=== PATIENT | female | born 1975 | race American Indian/Alaskan Native ===

== ENCOUNTER 2017-02-04 15:28 | Emergency (ER) | payer SELFPAY ==
[2017-02-04 17:07] VITALS: BP 140/82
[2017-02-04] MEDS ORDERED: FUL-GLO OP ONE ×2 (20:28→20:52)
--- NOTE | 2017-02-04 20:51 | Emergency Department Report ---
Eye Injury/Foreign Body - HPI Duration: 1 Day Eye Location: Left Severity: Mild Eye Symptoms: Eye Pain: Yes, Blurred Vision: Yes, Eye Redness: Yes, Grinding/ Hammering Metal: No, Contact Lens Use: No, Recalls Injury: Yes (patient states she thinks she scratched inside of eye with nail), Photophobia: Yes Other History: 41 year old female presents to ED with left sided eye pain, redness, blurriness x1 day. patient states she think she scratched eye with nail 1 day ago. patient is stable, neurologically intact and in no acute distress. patient states she wears glasses but denies wearing contact lenses. patient states LMP 01/28/17 ED Review of Systems ROS: Stated complaint: LFT EYE SWELLING Other details as noted in HPI Constitutional: denies: chills, fever Eyes: eye pain, eye discharge (watery), vision change (blurry) ENT: denies: ear pain, throat pain Respiratory: denies: cough, shortness of breath, wheezing Cardiovascular: denies: chest pain, palpitations Endocrine: no symptoms reported Gastrointestinal: denies: abdominal pain, nausea, diarrhea Genitourinary: denies: urgency, dysuria, discharge Musculoskeletal: denies: back pain, joint swelling, arthralgia Skin: denies: rash, lesions Neurological: denies: headache, weakness, numbness, paresthesias, confusion Psychiatric: denies: anxiety, depression Hematological/Lymphatic: denies: easy bleeding, easy bruising ED Past Medical Hx - Past Medical History Previous Medical History?: No - Surgical History Past Surgical History?: No - Social History Smoking Status: Never Smoker - Medications Home Medications: Home Medications Medication Instructions Recorded Confirmed Last Taken Type Erythromycin [Erythromycin Ophth 0.5 strip OS Q4H #1 tube 02/04/17 Unknown Rx Oint] Polymyxin B Sulf/Trimethoprim 1 drop OS Q4H #1 bottle 02/04/17 Unknown Rx [Polytrim Eye Drops] Eye Injury Exam - Exam General: Vital signs noted. No distress. Alert and acting appropriately. - Visual Acuity Left Vision Acuity Degree: 20/50 Eye Exam: Left Injection, Left Fluorescein Uptake (mild corneal abrasion present with no presence of abscess), Left Photophobia, Neither Abnormal Pupil, Neither EOMI, Neither Eye Foreign Body, Neither Lid Foreign Body, Neither Mucous Discharge, Neither Purulent Discharge Right Vision Acuity Degree: 20/50 Eye Exam: Neither Injection, Neither Abnormal Pupil, Neither EOMI, Neither Mucous Discharge, Neither Purulent Discharge Bilateral Vision Acuity Degree: 20/50 ED Course Vital Signs 02/04/17 17:04 Temperature 99 F Pulse Rate 82 Respiratory 16 Rate Blood Pressure 140/82 O2 Sat by Pulse 100 Oximetry ED Medical Decision Making - Medical Decision Making 41 year old female presents to ED with left eye pain and redness x1 day. patient has small, mild non central corneal abrasion present on left eye during wood's lamp exam. patient will be given Abx drops and opth ointment for left eye and agrees and understands to follow up with Optho MD within 24-48 hours. patient is stable ,neurologically intact and in no acute distress. Critical care attestation.: If time is entered above; I have spent that time in minutes in the direct care of this critically ill patient, excluding procedure time. ED Disposition Clinical Impression: Corneal abrasion, left Qualifiers: Encounter type: initial encounter Qualified Code(s): S05.02XA - Injury of conjunctiva and corneal abrasion without foreign body, left eye, initial encounter Disposition: DC-01 TO HOME OR SELFCARE Is pt being admited?: No Does the pt Need Aspirin: No Condition: Stable Instructions: Corneal Abrasion (ED) Prescriptions: Erythromycin [Erythromycin Ophth Oint] 0.5 strip OS Q4H #1 tube Polymyxin B Sulf/Trimethoprim [Polytrim Eye Drops] 1 drop OS Q4H #1 bottle Referrals: PRIMARY CARE,MD [Primary Care Provider] - 24 Hours (Please follow up with opthamologist within 24-48 hours) Forms: Work/School Release Form(ED)
[2017-02-04] MEDS ORDERED: BSS ONE (20:52)
[2017-02-04] MEDS ORDERED: TETRACAINE 0.5% ONE (20:52)
[2017-02-04] MEDS ORDERED: ULTRAM PO ONE (21:00)
== END 2017-02-04 21:53 | disposition home or self-care (01) ==
LOC: ED 15:28
DX: S05.02XA Injury of conjunctiva and corneal abrasion without foreign body, left eye, initial encounter (principal); X58.XXXA Exposure to other specified factors, initial encounter; Y93.9 Activity, unspecified; Y99.9 Unspecified external cause status; Y92.89 Other specified places as the place of occurrence of the external cause
CPT/HCPCS: 99283